=== PATIENT | female | born 1970 | race Caucasian/White ===

== ENCOUNTER → 2017-07-31 | Outpatient (CLI) | payer OTHER | LOC: ULTRA 07:07 | DX: R19.09 Other intra-abdominal and pelvic swelling, mass and lump (principal) ==

== ENCOUNTER → 2017-08-06 | Outpatient (CLI) | payer OTHER | LOC: RAD 13:37 | DX: Z12.31 Encounter for screening mammogram for malignant neoplasm of breast (principal) ==

== ENCOUNTER → 2017-08-21 | Outpatient (CLI) | payer OTHER | LOC: ULTRA 07:17 | DX: N60.02 Solitary cyst of left breast (principal) ==

== ENCOUNTER → 2018-09-10 | Outpatient (CLI) | payer OTHER | LOC: RAD 07:33 | DX: Z12.31 Encounter for screening mammogram for malignant neoplasm of breast (principal) ==

== ENCOUNTER → 2019-09-10 | Outpatient (CLI) | payer OTHER | LOC: BC 12:38 | DX: Z12.31 Encounter for screening mammogram for malignant neoplasm of breast (principal) ==

== ENCOUNTER → 2020-08-24 | Outpatient (CLI) | payer OTHER | LOC: RAD 10:27 | PROVIDERS: ATTEND Family Medicine | DX: Z12.31 Encounter for screening mammogram for malignant neoplasm of breast (principal) ==

== ENCOUNTER → 2021-06-07 | Outpatient (CLI) | payer OTHER ==
[2021-06-07 09:16] LABS: ABSOLUTE NEUTROPHILS 4.7 thou/uL (1.4-8.2); BASOPHILS 0.8 % (0.0-2.0); HEMOGLOBIN 13.9 gm/dL (12.0-15.0); LYMPHOCYTES 27.8 % (24.0-44.0); MCH 30.9 pg (26.0-34.0); MCHC 33.8 g/dL (28.0-37.0); MCV 91.5 fL (80.0-100.0); MONOCYTES 9.5 % (1.0-8.0); PLATELET COUNT 169 thou/uL (150-400); POLYS 59.9 % (36.0-66.0); RBC 4.49 mil/uL (4.20-5.00); RDW 13.8 % (10.5-14.5); WBC 7.9 thou/uL (4.0-11.0)
[2021-06-07 09:32] LABS: ALBUMIN 3.5 g/dL (3.4-5.0); ANION GAP 3 mmol/L (7-16); BUN 15 mg/dL (7-18); CHLORIDE 104 mmol/L (98-107); CHOLESTEROL 219 mg/dL (<200); CO2 32 mmol/L (21-32); GLUCOSE 105 mg/dL (74-106); HDL CHOLESTEROL 67 mg/dL (>40); LDL CHOLESTEROL 132 mg/dL (<100); POTASSIUM 3.6 mmol/L (3.5-5.1); SGOT 21 U/L (15-37); SGPT 33 U/L (30-65); SODIUM 139 mmol/L (136-145); TC:HDL 3.3 Ratio (Not establshd); TOTAL BILIRUBIN 0.5 mg/dL (0.2-1.0); TOTAL PROTEIN 7.7 g/dL (6.4-8.2); TRIGLYCERIDE 100 mg/dL (<150); VLDL 20 mg/dL (<40)
== END ==
LOC: LAB 07:27
DX: Z13.220 Encounter for screening for lipoid disorders (principal); Z13.21 Encounter for screening for nutritional disorder; Z00.00 Encounter for general adult medical examination without abnormal findings; E03.9 Hypothyroidism, unspecified; Z13.29 Encounter for screening for other suspected endocrine disorder; Z87.09 Personal history of other diseases of the respiratory system